=== PATIENT | male | born 1970 ===

== ENCOUNTER 2022-05-11 01:25 | Emergency (ER) | payer MEDICAID ==
--- NOTE | 2022-05-11 01:46 | ED Physician Documentation ---
History of Present Illness - Stated complaint Stated Complaint: foot pain - Chief complaint Chief Complaint: General - History obtained from History obtained from: Patient - History of Present Illness Timing: How many weeks ago (one week) Pain level now: 2 Improved by: rest Worsened by: weight-bearing - Additonal information Additional information: initial complaint to me is "sharp pains in my big toe" and rhinorrhea. When I ask which toe, he then indicates both great toes hurt, as do all of his toes. He says symptoms have been approximately 1 week. No recent injury. Review of Systems Musculoskeletal: reports: Extremity pain, Pain with weight bearing. denies: Extremity swelling PD PAST MEDICAL HISTORY - Past Medical History Past Medical History: Yes Psych: Depression, Anxiety - Past Surgical History Past Surgical History: Yes Ortho: Arthroscopic surgery - Present Medications Home Medications: Ambulatory Orders Medication Instructions Recorded Confirmed Clotrimazole 1% Cream [Lotrimin 1% 1 film TP BID #30 gm 05/11/22 Cream] - Allergies Allergies/Adverse Reactions: Allergies Allergy/AdvReac Type Severity Reaction Status Date / Time No Known Drug Allergies Allergy Verified 05/11/22 01:34 - Social History Does the pt smoke?: No Smoking Status: Never smoker Does the pt drink ETOH?: Yes Does the pt have substance abuse?: Yes Substance Use and Type: Marijuana, Meth - Immunizations Immunizations are current?: Yes PD ED PE NORMAL - Vitals Vital signs reviewed: Yes - General General: Alert and oriented X 3, No acute distress, Well developed/nourished - HEENT HEENT: Moist mucous membranes, Pharynx benign PD ED PE EXPANDED - Extremities Extremities: Other (mild, faint , poorly marginated violaceous erythema to all toes, distal dorsal and plantar surfaces with some white, moist, macerated skin in bilateral 3rd and 4th webspaces) Results - Vitals Vitals: Vital Signs - 24 hr 05/11/22 03:47 Temperature 36.5 C Heart Rate 72 Respiratory 18 Rate Blood Pressure 130/75 O2 Saturation 99 Oxygen O2 Source Room air PD MEDICAL DECISION MAKING - ED course Complexity details: considered differential, d/w patient ED course: c/o and exam of feet is consistent with tinea pedis, although the violaceous erythema also suggests component of chilblains. There is brisk capillary refill in the toes, LTS intact. Patient provided rx for clotrimazole. Diagnoses discussed with patient. This is patient's ninth [facility] ED visit over past 12 months , seven in [place], one at [facility]. JUAN form reflects that all but one of these previous visits were for MHE, substance abuse, or both. When I was finished explaining d/c instructions and diagnoses to patient, he says "I'm thinking of getting into rehab", but he does not want to discuss specifics when I ask him about this. I told him that he can contact [facility] at any time by phone for [id number] assessment for possible intake. Contact information for [facility] provided in discharge sheets. Departure - Departure Disposition: Home, Self Care Clinical Impression: Tinea pedis, Chilblains Condition: Good Instructions: ED Fungal Infec Athlete Foot Prescriptions: Clotrimazole 1% Cream [Lotrimin 1% Cream] 1 film TP BID #30 gm Comments: The findings on your feet suggest a component of athlete's foot for which I am providing a prescription for an antifungal cream. This needs to be applied as directed for up to four weeks (can stop sooner if the rash resolves). I also suspect a component of pernio (also called chilblains), which is an un usual reaction to the cold, most commonly affecting the toes and causing a red/purplish appearance. There is no more specific treatment for this than keeping the feet insulated / dry and protected from the cold. It can take a few weeks for the discoloration to resolve. If you are seeking detox, I recommend that you contact [facility] in [place] at . They perform an interview over the phone to determine if their center can meet your needs. Discharge Date/Time: 05/11/22 03:47
[2022-05-11 03:48] VITALS: BP 130/75
== END 2022-05-11 03:47 | disposition home or self-care (01) ==
LOC: ED 01:25
DX: B35.3 Tinea pedis (principal); T69.1XXA Chilblains, initial encounter
CPT/HCPCS: 99281; 99282

== ENCOUNTER 2022-09-11 16:38 | Outpatient (CLI) | payer MEDICAID | END 2022-09-11 16:39 | disposition EMS.NT | LOC: EMS 16:38 | DX: S00.211A Abrasion of right eyelid and periocular area, initial encounter (principal); Y04.2XXA Assault by strike against or bumped into by another person, initial encounter ==

== ENCOUNTER 2023-07-24 19:13 | Emergency (ER) | payer MEDICAID ==
[2023-07-24 20:54] LABS: MUDS CUTOFF CONCENTRATIONS CUTOFF CONC BELOW:
[2023-07-24 21:13] LABS: COCAINE SCREEN URINE NEGATIVE (NEGATIVE); METHAMPHETAMINES SCREEN, URINE POSITIVE (NEGATIVE); OPIATE SCREEN, URINE NEGATIVE (NEGATIVE); THC CANNABINOID SCREEN, URINE POSITIVE (NEGATIVE)
[2023-07-24 21:14] LABS: AMPHETAMINE SCREEN,URINE POSITIVE (NEGATIVE); BARBITURATE SCREEN,UR NEGATIVE (NEGATIVE); BENZODIAZEPINES SCREEN, URINE NEGATIVE (NEGATIVE); METHADONE SCREEN, URINE NEGATIVE (NEGATIVE); OXYCODONE SCREEN, URINE NEGATIVE (NEGATIVE); PROPOXYPHENE SCREEN, URINE NEGATIVE (NEGATIVE); TRICYCLIC ANTIDEPRESSANT,URINE NEGATIVE (NEGATIVE)
[2023-07-24] MEDS ORDERED: NICOTINE 14 MG PATCH TOP STA (23:04)
[2023-07-24] MEDS ORDERED: guaiFENesin 100 MG/5 ML UDC PO STA (23:04)
--- NOTE | 2023-07-24 23:32 | ED Physician Documentation ---
History of Present Illness - Stated complaint Stated Complaint: DETOX - Chief complaint Chief Complaint: MHE - History obtained from History obtained from: Patient - Additonal information Additional information: Patient is a 52-year-old male with a history of substance abuse presenting for to the emergency department seeking help for detox. Patient was requesting help for detox from alcohol and methamphetamine. Patient states he did have some alcohol today but is unsure of the quantity. He also states he last used methamphetamine this morning. He reports recently being in detox approximately 1 month ago and states that he had difficulty maintaining his sobriety as soon as he left detox. Pt states he Went to [facility] yesterday and was sent to a detox facility in [place] but was kicked out after smoking a joint in the facility. Review of Systems Constitutional: denies: Fever Cardiac: denies: Chest pain / pressure Respiratory: reports: Cough. denies: Dyspnea GI: denies: Abdominal Pain, Vomiting PD PAST MEDICAL HISTORY - Past Medical History Psych: Depression, Anxiety - Past Surgical History Past Surgical History: Yes Ortho: Arthroscopic surgery - Present Medications Home Medications: Ambulatory Orders Medication Instructions Recorded Confirmed LORazepam [Ativan] 1 mg PO Q6H PRN #25 tablet 07/25/23 Ondansetron Odt [Zofran] 4 mg TL Q6H PRN #10 tablet 07/25/23 PHENobarbitaL [Phenobarbital] 30 mg PO BID 6 Days #9 tablet 07/25/23 - Allergies Allergies/Adverse Reactions: Allergies Allergy/AdvReac Type Severity Reaction Status Date / Time No Known Drug Allergies Allergy Verified 07/24/23 19:35 - Social History Does the pt smoke?: No Smoking Status: Never smoker Does the pt drink ETOH?: Yes Does the pt have substance abuse?: Yes - Immunizations Immunizations are current?: Yes PD ED PE NORMAL - General General: Alert and oriented X 3, No acute distress, Well developed/nourished - HEENT HEENT: Atraumatic, Moist mucous membranes, Pharynx benign - Neck Neck: Supple, no meningeal sign - Cardiac Cardiac: RRR, No murmur - Respiratory Respiratory: No respiratory distress, Clear bilaterally - Abdomen Abdomen: Soft, Non tender - Derm Derm: Warm and dry - Extremities Extremities: No deformity - Neuro Neuro: Alert and oriented X 3, No motor deficit, Normal speech Results - Vitals Vitals: Vital Signs - 24 hr 11/21/23 11/21/23 11/22/23 19:25 21:37 07:38 Temperature 36.3 C L 36.8 C Heart Rate 85 65 Respiratory 18 18 17 Rate Blood Pressure 131/79 H 143/58 H O2 Saturation 97 96 Oxygen O2 Source Room air - Labs Labs: Laboratory Tests 07/24/23 07/24/23 07/25/23 19:36 21:18 01:02 Urine Opiates Screen NEGATIVE Ur Oxycodone Screen NEGATIVE Urine Methadone Screen NEGATIVE Ur Propoxyphene Screen NEGATIVE Ur Barbiturates Screen NEGATIVE Ur Tricyclics Screen NEGATIVE Ur Phencyclidine Scrn NEGATIVE Ur Amphetamine Screen POSITIVE H U Methamphetamines Scrn POSITIVE H U Benzodiazepines Scrn NEGATIVE Urine Cocaine Screen NEGATIVE U Cannabinoids Screen POSITIVE H Ethyl Alcohol 36.0 SARS-CoV-2 (PCR) NOT DETECTED PD Medical Decision Making - ED course Complexity details: reviewed results, re-evaluated patient, d/w patient ED course: Pt is a 52 yo M requesting detox. Last use of meth and ETOH was earlier today. UDS and ETOH checked. Covid negative. Pt is not intoxicated here. Often asking for food. Does not appear to have withdrawal symptoms currently. Pt talked with [facility] and info sent. Pt slept overnight. Signed out to Dr. Zaman at shift change. Departure - Departure Disposition: 01 Home, Self Care Clinical Impression: Polysubstance (excluding opioids) dependence Condition: Stable Instructions: ED Withdrawal Alcohol Prescriptions: LORazepam [Ativan] 1 mg PO Q6H PRN #25 tablet PRN Reason: Alcohol Withdrawal PHENobarbitaL [Phenobarbital] 30 mg PO BID 6 Days #9 tablet Ondansetron Odt [Zofran] 4 mg TL Q6H PRN #10 tablet PRN Reason: Nausea / Vomiting Comments: I wrote prescriptions for medications to help you with your withdrawal. Phenobarbital twice daily for 3 days and then once daily for 3 days will help with alcohol withdrawal. Add lorazepam every 6 hours if needed to help with both alcohol and meth withdrawal. Your choice on the cannabis is use of that may actually be more helpful than hindrance. Stay well-hydrated. You can call the detox center in [place] directly if you change your mind about wanting to be in with them and they can reevaluate. We can provide you their phone number. I sent your prescriptions to [facility] pharmacy. Avoid the alcohol and meth. Regular diet. Good luck. Forms: PCP List Discharge Date/Time: 07/25/23 08:54
[2023-07-25 07:48] VITALS: BP 143/58; O2SAT 96
[2023-07-25] MEDS ORDERED: LORazepam 1 MG TABLET PO STA (08:03)
[2023-07-25] MEDS ORDERED: PHENobarbitaL 32.4 MG TABLET PO STA (08:03)
--- NOTE | 2023-07-25 08:53 | ED Physician Documentation ---
ED Addendum - Addendum Addendum: 07/25/23 08:51 I talked with the patient after change of shift. He was a little bit anxious but not having any tremors or nausea. I offered him medication to help with early withdrawal and he was accepting. He was given phenobarbital and lorazepam p.o. He did have some breakfast as well. He was feeling calmer. At this point he states he would rather not be in detox over the holiday with Thanksgiving tomorrow and would prefer being discharged. He did not have particular plans for Thanksgiving but the thought of it was less appealing for him. He requested discharge. I offered medication prescriptions to help with withdrawal symptoms. He was given the detox centers phone number to call if he changed his mind. He asked that his prescriptions go to [facility] pharmacy and I did that. Disposition: Patient is discharged home in stable condition. Diagnoses: 1. Polysubstance abuse and dependence 2. Early withdrawal 3. Homelessness.
== END 2023-07-25 08:54 | disposition home or self-care (01) ==
LOC: ED 19:13
DX: F10.239 Alcohol dependence with withdrawal, unspecified (principal); F15.23 Other stimulant dependence with withdrawal; Y90.1 Blood alcohol level of 20-39 mg/100 ml; Z20.822 Contact with and (suspected) exposure to COVID-19; Z59.00 Homelessness unspecified
CPT/HCPCS: 36415; 80306; 80320; 87635; 99283; A9270; J8499